=== PATIENT | female | born 1965 | race Caucasian/White ===

== ENCOUNTER → 2017-07-17 15:17 | Outpatient (CLI) | payer OTHER, SELFPAY ==
--- NOTE | 2017-07-17 15:19 | HPBI_ITS ---
MAMMOGRAPHY - BILATERAL SCREENING REASON FOR EXAM: Female, 51 years old. Routine annual screening examination. PERTINENT HISTORY: Non-contributory. TECHNIQUE: Digital bilateral breast glenny (3D mammographic acquisition) in the CC and MLO projections. 2-D mediolateral oblique (MLO) and craniocaudad (CC) views of both breasts were obtained. CAD: Full Field Digital Mammography with Computer Added Detection was performed. COMPARISON: Comparison is made with prior study dated July 07, 2016 and May 20, 2015. FINDINGS: Breast Composition: There are scattered areas of fibroglandular density. There are no dominant masses or suspicious calcifications. The previously seen 7.8 mm well-defined nodule in the upper outer aspect of the left breast is not seen at this time. No other significant abnormalities are identified. There has been no significant change since the prior study. HPBI/SCREENING MAMM (CAD), BILAT IMPRESSION: Stable bilateral screening mammogram. Yearly follow-up mammogram recommended. (A) ASSESSMENT CATEGORY: BIRADS Category 1: Negative. A letter regarding these results will be sent to the patient by the facility within 30 days. Approximately 10% of breast cancers are not detected by mammography. A normal mammogram should not delay biopsy of a clinically suspicious abnormality. [id number] Electronically Signed: Terrence Hill MD at 7:55 EST Tel [phone], Service support ,
== END ==
PROVIDERS: Family Provider Family Medicine; PCP Family Medicine; Visit Provider Family Medicine
DX: Z12.31 Encounter for screening mammogram for malignant neoplasm of breast (principal)
CPT/HCPCS: 77063; 77067

== ENCOUNTER 2017-09-01 15:21 | Emergency (ER) | payer OTHER, SELFPAY ==
[2017-09-01 15:26] VITALS: BP 168/114; PULSE 105; RESP 21; TEMP 36.6; O2SAT 96; BMI 31.4
[2017-09-01 15:30] VITALS: BP 176/88; PULSE 109; RESP 26; O2SAT 100
--- NOTE | 2017-09-01 15:51 | CT_ITS ---
CTA of the neck INDICATION: Headache, stroke TECHNIQUE: CTA of the neck was performed in the axial projection scanning in a dynamically enhanced fashion from the base of skull through the pulmonary apices followed by sagittal and coronal reconstructions. Radiographic technique was optimized to limit patient radiation dose. DLP is 1492.33. FINDINGS: There is only minor soft plaque seen within the common carotids carotid bulb and internal carotids bilaterally without evidence for hemodynamically significant stenosis. The vertebral arteries bilaterally are codominant and normal in caliber. IMPRESSION: Minor atherosclerotic changes. No evidence for a hemodynamically significant stenosis utilizing NASCET criteria Electronically Signed: Rommel Ortega MD at 17:48 EDT , Service support , STUDY: CTA OF THE BRAIN REASON FOR EXAM: Female, 51 years old. Headache RADIATION DOSAGE (If Supplied By Facility): CTDIvol = ( 27.15 ) mGy, DLP = ( 1492.33 ) mGycm TECHNIQUE: CT angiography was performed with a multi-detector CT scanner. Data acquisition was obtained from the skull base through the vertex following intravenous administration of ml of . MIP images were reconstructed from the axial data set. Post-processing of the angiographic images was performed, with multiplanar reformation and 3D reconstruction. Individualized dose optimization techniques were used for this CT. COMPARISON: None. FINDINGS: Normal bilateral petrous carotid arteries. Normal right cavernous carotid artery with a normal supraclinoid bifurcation. Normal left cavernous carotid artery with a normal supraclinoid bifurcation. Normal right A1 segments of the anterior cerebral artery. Normal left A1 segments of the anterior cerebral artery. Anterior communicating artery not visualized consistent with normal variant Normal bilateral A2 segments of the anterior cerebral arteries. Normal right M1 and M2 segments of the middle cerebral arteries, with a normal M1 bifurcation. Normal left M1 and M2 segments of the middle cerebral arteries, with a normal M1 bifurcation. Posterior communicating arteries are not visualized consistent with normal variant. Normal bilateral vertebral arteries. Normal basilar artery with a normal basilar bifurcation. The visualized bilateral superior cerebellar (SCA) arteries are normal. Normal bilateral P1, P2 and visualized P3 segments of the posterior cerebral arteries. There is no demonstrated aneurysm of the [place]. There is no demonstrated abnormality of the visualized brain. CT/CTA Neck W/WO Contrast IMPRESSION: Normal [place] without a demonstrated aneurysm or hemodynamically significant stenosis. Electronically Signed: Rommel Ortega MD at 17:48 EDT , Service support ,
--- NOTE | 2017-09-01 15:51 | CT_ITS ---
CTA of the neck INDICATION: Headache, stroke TECHNIQUE: CTA of the neck was performed in the axial projection scanning in a dynamically enhanced fashion from the base of skull through the pulmonary apices followed by sagittal and coronal reconstructions. Radiographic technique was optimized to limit patient radiation dose. DLP is 1492.33. FINDINGS: There is only minor soft plaque seen within the common carotids carotid bulb and internal carotids bilaterally without evidence for hemodynamically significant stenosis. The vertebral arteries bilaterally are codominant and normal in caliber. IMPRESSION: Minor atherosclerotic changes. No evidence for a hemodynamically significant stenosis utilizing NASCET criteria Electronically Signed: Rommel Ortega MD at 17:48 EDT , Service support , STUDY: CTA OF THE BRAIN REASON FOR EXAM: Female, 51 years old. Headache RADIATION DOSAGE (If Supplied By Facility): CTDIvol = ( 27.15 ) mGy, DLP = ( 1492.33 ) mGycm TECHNIQUE: CT angiography was performed with a multi-detector CT scanner. Data acquisition was obtained from the skull base through the vertex following intravenous administration of ml of . MIP images were reconstructed from the axial data set. Post-processing of the angiographic images was performed, with multiplanar reformation and 3D reconstruction. Individualized dose optimization techniques were used for this CT. COMPARISON: None. FINDINGS: Normal bilateral petrous carotid arteries. Normal right cavernous carotid artery with a normal supraclinoid bifurcation. Normal left cavernous carotid artery with a normal supraclinoid bifurcation. Normal right A1 segments of the anterior cerebral artery. Normal left A1 segments of the anterior cerebral artery. Anterior communicating artery not visualized consistent with normal variant Normal bilateral A2 segments of the anterior cerebral arteries. Normal right M1 and M2 segments of the middle cerebral arteries, with a normal M1 bifurcation. Normal left M1 and M2 segments of the middle cerebral arteries, with a normal M1 bifurcation. Posterior communicating arteries are not visualized consistent with normal variant. Normal bilateral vertebral arteries. Normal basilar artery with a normal basilar bifurcation. The visualized bilateral superior cerebellar (SCA) arteries are normal. Normal bilateral P1, P2 and visualized P3 segments of the posterior cerebral arteries. There is no demonstrated aneurysm of the [place]. There is no demonstrated abnormality of the visualized brain. CT/CTA Head W/WO Contrast IMPRESSION: Normal [place] without a demonstrated aneurysm or hemodynamically significant stenosis. Electronically Signed: Romeml Ortega MD at 17:48 EDT , Service support ,
--- NOTE | 2017-09-01 15:53 | ED.DCSUM_ITS ---
- ER Visit Summary Date of Service: 09/01/17 Chief Complaint: Headache History of Present Illness: The patient is a 51 F presenting with headache ?3 weeks. Patient states she has a severe headache which is gradually worsened over the past 3 weeks. She saw her primary care physician on Monday was put on antibiotics for sinus infection. She does not know which antibiotic she was put on. She states she takes Vicodin and gabapentin chronically for her back pain. She is in pain management. She has not tried any other medications for her headache. She complains of diffuse facial pain as well. Denies chest pain or shortness of breath. Denies other complaints. Physical Examination: Vitals are stable. Patient is afebrile. Alert no acute distress. HEENT exam is unremarkable. Neck is supple. No meningismus Lungs are clear and equal bilaterally. Heart is regular rate and rhythm. Abdomen is soft nontender nondistended. Extremities are unremarkable. Skin is warm and dry. No focal neurologic deficit. Remainder of exam is unremarkable. Emergency Department Course and Treatment: Patient given Compazine, Benadryl IV. CTA head and neck show no acute process. On reevaluation, patient is feeling much improved. She is requesting to go home. She is advised to follow- up with her pain management physician and her primary care physician. She is advised return ED if worsening complaints. Disposition: Discharge home Impression: Headache This note was generated with [email or web address] dictation software. It may contain incorrect words, spelling, and punctuation that were not noted in review of the chart prior to signing ED Disposition - Plan for ED Patient: Disposition: Home or Assisted Living Chief Complaint: Headache Instructions: ED Cephalgia Unspecified Referrals: Michel Sanchez MD [Primary Care Provider] -
[2017-09-01] MEDS: proCHLORPERazine 10 MG/2 ML Vial IV (16:13)
[2017-09-01] MEDS: DiphenhydrAMINE 50 MG/ML Syringe 25 MG IV (16:13)
[2017-09-01 16:53] VITALS: BP 190/155; PULSE 101; RESP 18; O2SAT 99
[2017-09-01 17:03] VITALS: BP 200/119; PULSE 93; RESP 18; O2SAT 99
--- NOTE | 2017-09-01 18:09 | ED.DEP ---
ED Disposition - Plan for ED Patient: Chief Complaint: Headache Instructions: ED Cephalgia Unspecified Referrals: Michel Sanchez MD [Primary Care Provider] -
[2017-09-01 18:28] VITALS: BP 158/88; PULSE 78; RESP 18; O2SAT 98
== END 2017-09-01 18:29 | disposition home or self-care (01) ==
PROVIDERS: Emergency Provider Emergency Medicine; Family Provider Family Medicine; PCP Family Medicine
DX: R51 Headache (principal); E11.9 Type 2 diabetes mellitus without complications; I10 Essential (primary) hypertension; M54.9 Dorsalgia, unspecified; Z72.0 Tobacco use; Z79.899 Other long term (current) drug therapy; Z79.4 Long term (current) use of insulin
CPT/HCPCS: 70496; 70498; 96374; 96375; 99285; Q9967; A4216

== ENCOUNTER → 2017-11-01 15:12 | Outpatient (CLI) | payer OTHER, SELFPAY ==
[2017-11-09 13:13] LABS: HPV Reflexed? NOT INDICATED
== END ==
PROVIDERS: Visit Provider Obstetrics & Gynecology
DX: Z12.4 Encounter for screening for malignant neoplasm of cervix (principal)
CPT/HCPCS: 88175; G0145

== ENCOUNTER → 2018-08-20 15:52 | Outpatient (CLI) | payer OTHER, SELFPAY ==
--- NOTE | 2018-08-20 16:09 | BI_ITS ---
MAMMOGRAPHY - BILATERAL SCREENING REASON FOR EXAM: Female, 52 years old. Routine annual screening examination. PERTINENT HISTORY: Non-contributory. TECHNIQUE: Digital bilateral breast glenny (3D mammographic acquisition) in the CC and MLO projections. 2-D mediolateral oblique (MLO) and craniocaudad (CC) views of both breasts were obtained. CAD: Full Field Digital Mammography with Computer Added Detection was performed. COMPARISON: Comparison is made with prior study dated July 17, 2017 and July 07, 2016 FINDINGS: Breast Composition: There are scattered areas of fibroglandular density. There are no dominant masses or suspicious calcifications. 4.3 mm well-defined nodule in the deep mid lateral aspect of the left breast. Correlation with ultrasound is recommended. No other significant abnormalities are identified. BI/SCREENING MAMM (CAD), BILAT IMPRESSION: 4.3 mm well-defined nodule in the deep mid lateral aspect of the left breast. Correlation with ultrasound is recommended. ASSESSMENT CATEGORY: BIRADS Category 0: Incomplete. Need additional imaging evaluation. A letter regarding these results will be sent to the patient by the facility within 30 days. Approximately 10% of breast cancers are not detected by mammography. A normal mammogram should not delay biopsy of a clinically suspicious abnormality. [id number] Electronically Signed: Terrence Hill, at 8:35 EDT , Service support ,
== END ==
PROVIDERS: Family Provider Family Medicine; PCP Family Medicine; Referring Provider Family Medicine; Visit Provider Family Medicine
DX: Z12.31 Encounter for screening mammogram for malignant neoplasm of breast (principal)
CPT/HCPCS: 77063; 77067

== ENCOUNTER → 2018-08-27 15:19 | Outpatient (CLI) | payer OTHER, SELFPAY ==
--- NOTE | 2018-08-27 15:21 | US_ITS ---
STUDY: ULTRASOUND BREAST - LEFT REASON FOR EXAM: Female, 52 years old. Abnormal screening mammogram. TECHNIQUE: Axial and longitudinal images of the LEFT breast were performed with a high resolution ultrasound transducer. COMPARISON: Comparison is made with prior mammogram dated August 20, 2018 and prior ultrasound of the left breast dated November 25, 2015. FINDINGS: LEFT Breast: There is a 4 mm x 6 mm x 2 mm hypoechoic mostly anechoic well-defined nodule at the 4:00 position of the breast at the sinus from the nipple. This corresponds to the mammographic findings. A follow-up sonogram in 6 months is recommended. US/Breast Limited Unilateral IMPRESSION: The mammographic abnormality corresponds to a 4 mm x 6 mm x 2 mm hypoechoic mostly anechoic well-defined nodule deep in the left breast at the 4:00 position. A six-month follow-up sonogram is recommended. ASSESSMENT CATEGORY: BIRADS Category 3: Probably Benign - Short-Interval Follow-up Suggested. A letter regarding these results will be sent to the patient by the facility within 30 days. Electronically Signed: Terrence Hill, at 9:38 EDT , Service support ,
== END ==
PROVIDERS: Family Provider Family Medicine; PCP Family Medicine; Referring Provider Family Medicine; Visit Provider Family Medicine
DX: R92.8 Other abnormal and inconclusive findings on diagnostic imaging of breast (principal)
CPT/HCPCS: 76642

== ENCOUNTER → 2019-02-26 15:04 | Outpatient (CLI) | payer OTHER, SELFPAY ==
--- NOTE | 2019-02-26 15:07 | US_ITS ---
STUDY: ULTRASOUND BREAST - LEFT REASON FOR EXAM: Female, 53 years old. Follow up nodule in the left breast 4:00 position TECHNIQUE: Axial and longitudinal images of the LEFT breast were performed with a high resolution ultrasound transducer. COMPARISON: Prior ultrasound from 08/27/2018 FINDINGS: LEFT Breast: Serial emotional and transverse scans of the left breast were performed at 4:00 position and again demonstrate an area of decreased echogenicity which contains some debris but also has good through transmission well defined margins. This most likely represents a small cyst. This small cyst was previously identified in head is minimally decreased in size. US/Breast Limited Unilateral IMPRESSION: A small cyst is seen in the deep left breast 4:00 position which is unchanged. FINAL ASSESSMENT: BI-RAD CATEGORY II (BENIGN FINDING) YEARLY MAMMOGRAPHY RECOMMENDED Electronically Signed: Miguel Molina, at 17:15 EDT Tel , Service support ,
== END ==
PROVIDERS: Family Provider Family Medicine; PCP Family Medicine; Referring Provider Family Medicine; Visit Provider Family Medicine
DX: N63.20 Unspecified lump in the left breast, unspecified quadrant (principal)
CPT/HCPCS: 76642